=== PATIENT | female | born 2000 | race Caucasian/White ===

== ENCOUNTER 2019-03-28 19:09 | Emergency (ER) | payer MEDICAID ==
[~2019-03-28] VITALS: Ht 160 cm; Wt 86.2 kg
[~2019-03-28 19:09] MED LIST: ACETAMINOPHEN-1 EAC1 PO; CRUTCH1 EACH; KEFLEX500 MG PO; MICROGESTIN1 EACH PO; NAPROSYN500 MG PO; NORCO 5-325 TA1 EACH PO; PROPRANOLOL HCL20 MG PO; ST. JOHN'S WOR300 MG PO; ZOFRAN ODT8 MG PO
[2019-03-28] MEDS ORDERED: PROPRANOLOL HCL10 MG PO (19:36)
[2019-03-28] MEDS ORDERED: NORCO 5-325 TA1 EACH PO (22:10)
[2019-03-28] MEDS ORDERED: ZOFRAN4 MG PO (22:10)
== END 2019-03-28 22:26 | disposition home or self-care (01) ==
LOC: ED 19:09
DX: G89.29 Other chronic pain (principal); R10.2 Pelvic and perineal pain; R10.32 Left lower quadrant pain; R11.2 Nausea with vomiting, unspecified; Z79.899 Other long term (current) drug therapy
CPT/HCPCS: 74177; 80053; 81001; 84703; 85025; 96361; 99284-25; J1170; J1885; J2405; J7030; Q9967

== ENCOUNTER 2024-05-26 00:47 | Emergency (ER) | payer OTHER ==
[~2024-05-26] VITALS: Ht 160 cm; Wt 84.0 kg
[~2024-05-26 00:47] MED LIST changes: +PROPRANOLOL HCL10 MG PO; +ZOFRAN4 MG PO
[2024-05-26] MEDS ORDERED: ondansetron HCL 4 MG/2 ML VIAL IV ONE (01:15)
[2024-05-26] MEDS ORDERED: MORPHINE SULFATE 4 MG/ML VIAL IV ONE (01:15)
[2024-05-26] MEDS ORDERED: SODIUM CHLORIDE 0.9% 1,000 ML IV ONE (01:15)
[2024-05-26 01:17] LABS: BASOPHILS 0.4 % (0-2); EOSINOPHILS 2.6 % (0-6); HEMATOCRIT 41.3 % (35.0-50.0); LYMPHOCYTES 32.1 % (24-44); MCH 30.7 (27-36); MCV 90.3 fl (81-99); NEUTROPHILS 56.9 % (39-80); PLATELET COUNT 448 K/uL (140-440); RBC 4.57 M/ul (4.3-5.7); RDW 13.8 (10.5-15.0)
[2024-05-26 01:34] LABS: BILIRUBIN, URINE NEGATIVE (negative); BLOOD/HGB, URINE NEGATIVE (Negative); KETONE, URINE NEGATIVE (Negative); LEUK ESTERASE, URINE NEGATIVE (negative); NITRITE, URINE NEGATIVE (negative); PH, URINE 6.5 (5-7)
[2024-05-26 01:35] LABS: ALBUMIN 3.5 g/dL (3.4-5.0); ALBUMIN/GLOBULIN RATIO 0.85 (1.1-2.4); ANION GAP 13.7 (7-21); BILIRUBIN, TOTAL 0.3 ng/dL (0.2-1.0); BUN/CREATININE RATIO 12.5 (6.0-28.6); CALCIUM 9.1 mg/dL (8.5-10.1); CREATININE, SERUM 0.96 mg/dL (0.55-1.02); POTASSIUM 3.7 mmol/L (3.5-5.1); PROTEIN, TOTAL 7.6 g/dL (6.4-8.2)
[2024-05-26] MEDS ORDERED: KETOROLAC TROMETHAMINE 30 MG/ML VIAL IV ONE (03:15)
[2024-05-26] MEDS ORDERED: DICYCLOMINE HCL10 MG PO (04:59)
[2024-05-26] MEDS ORDERED: ONDANSETRON ODT8 MG PO (04:59)
[2024-05-26] MEDS ORDERED: DICYCLOMINE HCL 10 MG HOME.PACK PO ONE (05:15)
[2024-05-26] MEDS ORDERED: TRAMADOL HCL 50 MG HOME.PACK PO ONE (05:15)
[2024-05-26] MEDS ORDERED: ONDANSETRON 4 MG HOME.PACK SL ONE (05:15)
[2024-05-26 05:20] VITALS: BP 131/81
== END 2024-05-26 05:21 | disposition home or self-care (01) ==
LOC: ED 00:47
PROVIDERS: Family Medicine
DX: R10.30 Lower abdominal pain, unspecified (principal); Z79.899 Other long term (current) drug therapy
CPT/HCPCS: 36415; 74177; 80053; 81003; 83690; 84703; 85025; 96375; 99284-25; A9270; J1885; J2270; J2405; J7030; Q9967